=== PATIENT | female | born 1960 | race Caucasian/White ===

== ENCOUNTER → 2024-11-17 | Outpatient (CLI) | payer OTHER ==
--- NOTE | 2024-11-17 16:27 | HMCIMG ---
CT HEART ??? CORONARY ARTERY CALCIUM SCORING REPORT EXAM: CT Coronary Artery Calcium Scoring (Non-Contrast) CLINICAL HISTORY: Asymptomatic patient referred for evaluation of coronary artery calcification and cardiovascular risk assessment. TECHNIQUE: Non-contrast computed tomography of the heart was performed using a multi-slice CT scanner. ECG-gated images were acquired and analyzed for coronary artery calcification. The Agatston method was used for quantification. FINDINGS: Study Date: 17 Nov 2024 Total Calcium Score (Agatston): 43.9 This corresponds to mild coronary artery calcification and places the patient above the 25th percentile for age and gender, equivalent to a coronary age > 70 years. DISTRIBUTION OF CALCIUM: Artery Score LM 0 LAD 43.9 LCX 0 RCA 0 Total 43.9 Aorta: Ascending thoracic aorta measures 3.3 cm, within normal limits. Calcified atherosclerotic changes are seen in the coronary vessels. No acute abnormality identified. Other Cardiac Structures: Cardiac chambers and pericardium appear normal. IMPRESSION: Mild coronary artery calcification (Agatston Score = 43.9). This corresponds to the 78th percentile. Calcified atherosclerotic changes in coronary vessels, predominantly involving the LAD. Clinical correlation with cardiovascular risk factors is recommended. Routine cardiology follow-up for preventive management and periodic reassessment. /[place]
== END | disposition home or self-care (01) ==
LOC: RAH 13:01
PROVIDERS: ATTEND Internal Medicine Cardiovascular Disease
DX: Z13.6 Encounter for screening for cardiovascular disorders (principal); I25.10 Atherosclerotic heart disease of native coronary artery without angina pectoris; I70.0 Atherosclerosis of aorta
CPT/HCPCS: 75571